=== PATIENT | female | born 1950 | race Caucasian/White ===

== ENCOUNTER 2025-03-29 16:20 | Emergency (ER) | payer BC, SELFPAY ==
[2025-03-29 16:33] VITALS: BP 133/81
[2025-03-29 17:14] LABS: % Basophils 0.5 % (0-2); % Eosinophils 2.1 % (0-6); % Immature Granulocytes 0.3 % (0-0.5); % Lymphocytes 15.5 % (20.5-51.1); % Monocytes 7.2 % (1.7-9.3); % Neutrophils 74.4 % (42.2-75.2); Absolute Eosinophils 0.1 10^3/uL (0-0.7); Absolute Lymphocytes 0.9 10^3/uL (1.2-3.4); Absolute Monocytes 0.4 10^3/uL (0.1-0.6); Absolute Neutrophils 4.3 10^3/uL (1.4-6.5); Hematocrit 38.2 % (37.0-47.0); Hemoglobin 13.1 g/dL (12.0-16.0); Mean Corp Hgb Conc. 34.3 g/dL (33.0-37.0); Mean Corpuscular Volume 90.3 fL (81.0-99.0); Mean Platelet Volume 10.3 fL (7.4-10.4); Nucleated Red Blood Cells % 0 %; Platelet Count 215 10^3/uL (130-400); Red Blood Cell Count 4.23 10^6/uL (4.20-5.40); Red Cell Dist. Width 13.2 % (11.5-14.5); White Blood Cell Count 5.8 10^3/uL (4.8-10.8)
[2025-03-29 17:25] LABS: Troponin I < 0.012 ng/ml
[2025-03-29 17:34] LABS: ALT (SGPT) 38 U/L (0-35); AST (SGOT) 39 U/L (14-36); Albumin 4.5 g/dl (3.5-5.0); Alkaline Phosphatase 81 U/L (38-126); Blood Urea Nitrogen 23 mg/dl (7-17); Calcium 8.8 mg/dl (8.4-10.2); Carbon Dioxide 25 mmol/L (22-30); Chloride 101 mmol/L (98-107); Glucose 143 mg/dl (70-99); Potassium 4.6 mmol/L (3.5-5.1); Sodium 135 mmol/L (135-145); Total Bilirubin 0.9 mg/dl (0.2-1.3); Total Protein 7.1 g/dl (6.3-8.2); eGFR 43.69
--- NOTE | 2025-03-29 19:44 | ED.GENMED ---
History of Present Illness
General
Chief Complaint: Chest Pain
Time Seen by Provider: 03/29/25 19:40
History of Present Illness
History of Present Illness:
TIME OF INITIAL ENCOUNTER: 7:50pm
HPI: The patient presents with 2 weeks of intermittent chest discomfort. She lives in [place]. She was having some increased discomfort before she left today. There is some questionable shortness of breath. She has no lower extremity edema.
EXAM:
GENERAL: Well appearing in no distress
HEENT: Moist oral mucosa
CARDIOVASCULAR: No murmurs, normal heart rate, regular rhythm, mild anterior chest wall tenderness
PULMONARY: No respiratory distress, breath sounds are clear and equal
ABDOMEN: Soft with no peritoneal signs, no tenderness
NEUROLOGIC: Excellent strength all extremities, no coordination deficits
PSYCHIATRIC: Appropriate mental status, normal insight and judgement
EXTREMITIES: Nontender, no edema, moves all extremities equally
SKIN: No rash, no lesions
NUMBER AND COMPLEXITY OF PROBLEMS ADDRESSED AT THE ENCOUNTER
� Chronic conditions affecting care: Has had SVT, CKD
� Acute Exacerbation and/or Progression of Chronic Illness: This is an acute problem
� Differential Diagnosis includes: Musculoskeletal chest wall pain, GERD, costochondritis
AMOUNT AND/OR COMPLEXITY OF DATA TO BE REVIEWED AND ANALYZED
� I performed an independent evaluation of and my interpretation is:
EKG: Sinus 70, normal axis, no acute ST abnormality, occasional PVC
CT:
X-rays: I see no abnormality on chest x-ray
Laboratory Studies: CBC normal, creatinine 1.3 with no old compare, troponin less than 0.012, D-dimer effectively rules out PE
Other:
� Review of other/old records: No old records available for review
� Clinical information was obtained by an independent historian: I spoke to at bedside
� Prescriptions/Medications Considered but not given: Considered analgesia, the patient appears very comfortable
� Further testing considered but not performed:
RISK OF COMPLICATIONS AND/OR MORBIDITY OR MORTALITY OF PATIENT MANAGEMENT
� Social determinants of health affecting care: Lives in [place]
� Discussion with other providers:
� Escalation of care including admission/observation vs risk of discharge considered: The patient has a relatively unremarkable ED workup. 2 troponins negative.
ANY OTHER UPDATES:
Phy Exam
Physical Exam
Physical Exam:
See HPI
Scores
Heart Score for Chest Pain Patients
STEMI patient?: Not applicable
Course
Orders/Labs/Results
Orders:
Orders
03/29/25 16:22
Electrocardiogram (*1) Urgent
Reason for Study: Chest Pain
EKG- Treatment ONCE
03/29/25 16:46
Complete Blood Count/With Diff Urgent
Comprehensive Metabolic Panel Urgent
Troponin I Urgent
03/29/25 19:28
EKG- Treatment ONCE
03/29/25 19:54
CR Chest - 2 Views Urgent
Comment:
Reason For Exam: pain
03/29/25 20:15
ECG [Electrocardiogram (*1)] Urgent
Reason for Study: Chest Pain
03/29/25 20:21
D-Dimer Urgent
Troponin I Urgent
Abnormal Lab Results
03/29/25
16:46
Absolute Lymphs (auto) 0.9 L 10^3/uL
(1.2-3.4)
Lymphocytes % 15.5 L %
(20.5-51.1)
BUN 23 H mg/dl
(7-17)
Creatinine 1.3 H mg/dL
(0.6-1.0)
Glucose 143 H mg/dl
(70-99)
AST 39 H U/L
(14-36)
ALT 38 H U/L
(0-35)
03/29/25 16:46
03/29/25 16:46
Vital Signs
Initial and Last Documented VS:
Initial Vital Signs
Temp Pulse Resp BP Pulse Ox
36.9 C 67 20 133/81 100
03/29/25 16:33 03/29/25 16:33 03/29/25 16:33 03/29/25 16:33 03/29/25 16:33
Last Documented Vital Signs
Temp Pulse Resp BP Pulse Ox
36.9 C 56 18 132/80 100
03/29/25 16:33 03/29/25 20:42 03/29/25 20:42 03/29/25 20:42 03/29/25 20:42
*Critical Care Note
Total Time (30-74mins, 75-104mins- exclusive of procedures): Not Applicable
ED Attending Note
-
Portions of this chart may have been created with voice recognition software.� Occasional wrong word or��sound alike� substitutions may have occurred due to the inherent limitations of voice recognition software.
Discharge Plan
Departure
Patient Disposition: Home (Routine Discharge)
Date of Disposition: 03/29/25
Time of Disposition: 21:28
Patient with high blood pressure during this ER visit?: Yes
Discharge Problem:
Chest pain
Instructions: Chest Pain NON-[facility] [employer] Follow Up
Activity Restrictions/Additional Instructions:
Return here if worse or other concerns. Basic blood work is normal however your creatinine is slightly elevated at 1.3. 2 troponins were negative (heart attack test). D-dimer screening test for blood clot was also negative. Return here if worse
or other concerns and be sure to follow-up with your recreation facility attendant in [place].
Interventions
Interventions:
*Risk Screen - Suicide Last Done: 03/29/25 16:33
*General Assessment Last Done: 03/29/25 16:33
*Neglect/Abuse Screening Last Done: 03/29/25 16:33
*ED- Fall Risk Assessment Last Done: 03/29/25 20:42
*ED COVID-19 Vaccine History Last Done: 03/29/25 20:42
ED- Cardiac Assessment Last Done: 03/29/25 20:43
Discharge Date and Time
Print Language: IRANIAN
[2025-03-29 20:39] LABS: D-Dimer 0.32 ug/mlFEU (0.00-0.50)
[2025-03-29 20:40] VITALS: BMI 25.6
[2025-03-29 20:42] VITALS: BP 132/80
[2025-03-29 20:53] LABS: Troponin I < 0.012 ng/ml
[2025-03-29 21:00] VITALS: BP 131/71
== END 2025-03-29 21:43 | disposition home or self-care (01) ==
LOC: EMR 16:20
PROVIDERS: Emergency Medicine; EMERGENCY PHYSICIAN Emergency Medicine
DX: R07.89 Other chest pain (principal); R03.0 Elevated blood-pressure reading, without diagnosis of hypertension; Z88.6 Allergy status to analgesic agent; Z88.2 Allergy status to sulfonamides
CPT/HCPCS: 99284; 71046; 80053; 84484; 85025; 85379; 93005

== ENCOUNTER 2025-03-31 07:28 | Emergency (ER) | payer BC, SELFPAY ==
[2025-03-31 07:43] VITALS: BP 127/77
--- NOTE | 2025-03-31 08:14 | ED.GENMED ---
History of Present Illness
General
Chief Complaint: Rectal Bleeding
Source: patient and spouse
Exam Limitations: none
Time Seen by Provider: 03/31/25 07:49
Nursing documentation reviewed up to this point in time: agreed with
History of Present Illness
History of Present Illness:
Patient with history of SVT on metoprolol, currently visiting from [place], scheduled to return back home tomorrow, presents to ED secondary to intermittent episodes of lower abdominal cramping sensation along with 2 episodes of bloody diarrhea.
Denies fever or chills. Denies nausea or vomiting. Denies trauma. Denies recent change in medications or diet. Patient reports having had show ribs sandwich for lunch, prior to onset of her symptoms yesterday, while walking. Denies previous
history of similar symptoms. Denies dizziness or weakness. Denies shortness of breath. Patient does not take any blood thinning medications. Patient does report having received colonoscopy 6 weeks ago, during which time benign polyps were
removed and diverticulosis was noted. Denies recent weight loss. Of note, patient was in ED 2 days ago during which time she was evaluated for chest pain, which now has resolved completely.
Review of Systems
Review of Systems
Allergies reviewed?: Yes
All Other Systems: ROS reviewed and negative except as documented in HPI and ROS
Constitutional: Reports no symptoms; Denies fever
Respiratory: Reports no symptoms; Denies trouble breathing
Cardiac: Reports no symptoms; Denies chest pain, palpitations or syncope
ABD/GI: Reports abdominal pain, diarrhea and bloody stools
: Reports no symptoms; Denies flank pain or bleeding
Musculoskeletal: Reports no symptoms
Skin: Reports no symptoms
Neurological: Reports no symptoms; Denies dizzy or weakness
Phy Exam
Physical Exam
Physical Exam:
Physical Exam
General: mild distress, not acutely ill. afebrile
Head: nc/at. eomi
Neck: supple. normal range of motion.
Heart: s1/s2 regular rate and rhythm. no murmur
Lungs: no acute respiratory distress. clear bilaterally
Abdomen: normal bowel sounds. no distention. mild suprapubic tenderness to palpation
Neuro: alert and oriented x 3. no focal neurological deficits
Skin: no rash
Psychiatric: well kept. interactive and cooperative
Extremities: no edema. no calf tenderness.
Course
Orders/Labs/Results
Orders:
Orders
03/31/25 08:13
CT Abd/pel (oral only)-DH Only Urgent
Comment:
Reason For Exam: lower abd pain w bloody diarrhea
IV Insert/Care/Rem.- Treatment PRN
0.9% Sodium Chloride 500 ml [Nss] 500 ml IV BOLUS
Iohexol [Omnipaque] See Protocol PO NOW STA
03/31/25 08:21
Type+Screen Urgent
Complete Blood Count/With Diff Urgent
Comprehensive Metabolic Panel Urgent
PTT Urgent
Prothrombin Time Urgent
03/31/25 10:29
Stool Culture Urgent
ANNI Source: Feces/Stool
Specimen Description:
Date Specimen was Collected: 03/31/25
Time Specimen was Collected: 10:28
03/31/25 10:37
ABO2 Urgent
BBK Wristband Number:
Associate notified that ABO2 has been ordered: [id number]
Date: 03/31/25
Time: 08:31
Inventory Worker ID: [id number]
03/31/25 11:40
Ketorolac [Toradol] 15 mg IV NOW STA
Pantoprazole [Protonix IV] 40 mg IV NOW STA
03/31/25 11:41
Ketorolac [Toradol] 15 mg .ROUTE .STK-MED ONE
Pantoprazole [Protonix IV] 40 mg .ROUTE .STK-MED ONE
Abnormal Lab Results
03/31/25
08:21
WBC 11.0 H 10^3/uL
(4.8-10.8)
MPV 10.6 H fL
(7.4-10.4)
Absolute Neuts (auto) 9.3 H 10^3/uL
(1.4-6.5)
Absolute Lymphs (auto) 0.9 L 10^3/uL
(1.2-3.4)
Absolute Monos (auto) 0.7 H 10^3/uL
(0.1-0.6)
Neutrophils % 84.3 H %
(42.2-75.2)
Lymphocytes % 8.0 L %
(20.5-51.1)
BUN 27 H mg/dl
(7-17)
Creatinine 1.2 H mg/dL
(0.6-1.0)
Glucose 114 H mg/dl
(70-99)
03/31/25 08:21
03/31/25 08:21
Vital Signs
Initial and Last Documented VS:
Initial Vital Signs
Temp Pulse Resp BP Pulse Ox
98.8 F 65 18 127/77 100
03/31/25 07:43 03/31/25 07:43 03/31/25 07:43 03/31/25 07:43 03/31/25 07:43
Last Documented Vital Signs
Temp Pulse Resp BP Pulse Ox
98.8 F 55 12 122/67 99
03/31/25 07:43 03/31/25 13:15 03/31/25 13:15 03/31/25 13:00 03/31/25 13:15
MDM/Problems Addressed
MDM/Problems Addressed:
CT abdomen pelvis report reviewed and discussed with patient and her spouse. Patient also given copy of CT scan on a disk, to be reviewed with her GI physician upon returning home.
H&H noted. Discussed treatment options, including empiric treatment with antibiotics. Patient given prescription for Augmentin, to be discussed with her GI physician. Patient otherwise is afebrile, hemodynamically stable, and appears nontoxic, at
time of discharge.
Stool culture pending.
*Critical Care Note
Total Time (30-74mins, 75-104mins- exclusive of procedures): Not Applicable
ED Attending Note
-
Portions of this chart may have been created with voice recognition software.� Occasional wrong word or��sound alike� substitutions may have occurred due to the inherent limitations of voice recognition software.
Discharge Plan
Departure
Patient Disposition: Home (Routine Discharge)
Date of Disposition: 03/31/25
Time of Disposition: 13:17
Patient with high blood pressure during this ER visit?: Yes
Discharge Problem:
Colitis
Instructions: Colitis
Prescriptions:
New
amoxicillin-pot clavulanate 875-125 mg tablet
1 tab PO BID Qty: 14 0RF
No Action
metoprolol succinate [Toprol XL] 25 mg Tablet Extended Release 24 Hr
25 mg PO DAILY
polyethylene glycol 3350 [Miralax] 17 gram Powder In Packet
17 g PO DAILYPRN PRN (Reason: constipation)
metoprolol succinate [Toprol XL] 25 mg Tablet Extended Release 24 Hr
125 mg PO QPM
Dialyvite 100-1 mg tablet
1 tab PO DAILY
fish,bora,flax oils-om3,6,9no1 [[place] 3-6-9 Complex] 400-400-400 mg Capsule
2 cap PO DAILY
psyllium husk [Metamucil] 0.4 gram Capsule
1.2 g PO BID@1200,2000
Referrals:
ONELIA,GWILYM [Other]
Activity Restrictions/Additional Instructions:
As discussed, please follow-up with your primary care physician and/or GI physician for further evaluation and treatment.
Interventions
Interventions:
*Risk Screen - Suicide Last Done: 03/31/25 07:43
*General Assessment Last Done: 03/31/25 07:43
*Neglect/Abuse Screening Last Done: 03/31/25 07:43
*ED- Fall Risk Assessment Last Done: 03/31/25 13:50
*ED COVID-19 Vaccine History Last Done: 03/31/25 09:03
*Nursing Disposition Last Done: 03/31/25 13:50
LN-Svxdtp-Xdvbqwinfh Assessment Last Done: 03/31/25 09:03
ED- Cardiac Assessment Last Done: 03/31/25 09:03
ED- Pulmonary Assessment Last Done: 03/31/25 09:03
Discharge Date and Time
Discharge Date/Time: 03/31/25 13:50
Print Language: GERMAN
[2025-03-31] MEDS: OMNIPAQUE 50 ML PO (08:30)
[2025-03-31] MEDS: NSS 500 IV (08:31)
[2025-03-31 08:33] LABS: % Basophils 0.3 % (0-2); % Eosinophils 0.9 % (0-6); % Immature Granulocytes 0.3 % (0-0.5); % Monocytes 6.2 % (1.7-9.3); % Neutrophils 84.3 % (42.2-75.2); Absolute Eosinophils 0.1 10^3/uL (0-0.7); Absolute Lymphocytes 0.9 10^3/uL (1.2-3.4); Absolute Monocytes 0.7 10^3/uL (0.1-0.6); Absolute Neutrophils 9.3 10^3/uL (1.4-6.5); Hematocrit 40.2 % (37.0-47.0); Hemoglobin 13.8 g/dL (12.0-16.0); Mean Corp Hgb Conc. 34.3 g/dL (33.0-37.0); Mean Corpuscular Hgb 30.7 pg (27.0-31.0); Mean Corpuscular Volume 89.3 fL (81.0-99.0); Mean Platelet Volume 10.6 fL (7.4-10.4); Nucleated Red Blood Cells % 0 %; Platelet Count 214 10^3/uL (130-400); Red Cell Dist. Width 12.9 % (11.5-14.5)
[2025-03-31 08:38] VITALS: BP 124/71
[2025-03-31 08:49] LABS: ALT (SGPT) 34 U/L (0-35); AST (SGOT) 36 U/L (14-36); Albumin 4.2 g/dl (3.5-5.0); Alkaline Phosphatase 87 U/L (38-126); Blood Urea Nitrogen 27 mg/dl (7-17); Calcium 9.4 mg/dl (8.4-10.2); Carbon Dioxide 26 mmol/L (22-30); Chloride 104 mmol/L (98-107); Glucose 114 mg/dl (70-99); Potassium 4.7 mmol/L (3.5-5.1); Sodium 137 mmol/L (135-145); Total Protein 7.1 g/dl (6.3-8.2); eGFR 48.09
[2025-03-31 08:52] LABS: INR 1.03
[2025-03-31 08:53] LABS: APTT 25.9 Sec (23.4-35.0)
[2025-03-31 09:00] VITALS: BP 130/67
[2025-03-31 10:26] VITALS: BP 119/86
[2025-03-31] MEDS: TORADOL 15 MG IV (11:44)
[2025-03-31] MEDS: PROTONIX IV 40 MG IV (11:44)
[2025-03-31 12:00] VITALS: BP 133/78
[2025-03-31 13:00] VITALS: BP 122/67
== END 2025-03-31 13:50 | disposition home or self-care (01) ==
LOC: EMR 07:28
PROVIDERS: EMERGENCY PHYSICIAN Emergency Medicine
DX: K52.9 Noninfective gastroenteritis and colitis, unspecified (principal); Z86.79 Personal history of other diseases of the circulatory system; Z79.899 Other long term (current) drug therapy
CPT/HCPCS: 96374; 96375; 96361; 99284; 74176; 80053; 85025; 85610; 85730; 86850; 86900; 86901; 87045; 87046; 87427